=== PATIENT | male | born 1955 | race Caucasian/White ===

== ENCOUNTER 2017-11-03 20:01 | Inpatient (IN) | payer BC ==
[~2017-11-03] VITALS: Ht 180.3 cm; Wt 76.9 kg
[2017-11-03] MEDS ORDERED: ALBUTEROL/IPRATROPIUM 2.5MG/0.5MG, 3 ML NPPB ONE (20:30)
[2017-11-03] MEDS ORDERED: ALBUTEROL/IPRATROPIUM 2.5MG/0.5MG, 3 ML ONE (20:47)
[2017-11-03 21:15] LABS: ALBUMIN 3.6 g/dL (3.4-5.0); ANION GAP 5 mmol/L (5-15); CALCIUM 8.1 mg/dL (8.5-10.1); CHLORIDE 102 mmol/L (98-107); CREATININE 1.17 mg/dL (0.7-1.3)
[2017-11-03 21:19] LABS: TROPONIN I < 0.015 ng/mL (0.000-0.045)
[2017-11-03 21:36] LABS: MEAN CORPUSCULAR VOLUME 121.1 fL (81-97); RED BLOOD COUNT 1.75 x10^6/uL (4.38-5.82)
[2017-11-03 21:37] LABS: MEAN CORPUSCULAR HEMOGLOBIN 38.6 pg (27.5-34.5); MEAN CORPUSCULAR HGB CONC 31.8 g/dL (33.2-36.2); MEAN PLATELET VOLUME 8.6 fL (7.4-10.4); PLATELET COUNT 78 x10^3/uL (130-400); RED CELL DISTRIBUTION WIDTH 19.2 % (9.4-14.8)
[2017-11-03 22:14] LABS: MD YES
[2017-11-03 22:17] LABS: LYMPH#(MANUAL) 11.87 x10^3/uL (1-3.4); LYMPHS% (MANUAL) 3 % (22-44)
[2017-11-03 22:18] LABS: NRBC % (MANUAL) 2 % (0-1); OTHER CELLS # (MANUAL) 383.64 x10^3/uL (0-0); OTHER CELLS % (MANUAL) 97 % (0-0)
[2017-11-03] MEDS ORDERED: SODIUM CHLORIDE 0.9% 1,000 ML IV SCH (22:19)
[2017-11-03 22:21] LABS: ANISOCYTOSIS 2+; POLYCHROMASIA 1+
[2017-11-03 22:22] LABS: <PLATELET ESTIMATE> DECREASED; <PLT MORPHOLOGY> NORMAL PLT MORPH
[2017-11-03] MEDS ORDERED: ACETAMINOPHEN 325 MG TABLET PO PRN (22:30)
[2017-11-03] MEDS ORDERED: ALBUTEROL 0.5%, 20ML NPPB ONE (22:30)
[2017-11-03] MEDS ORDERED: INSULIN REGULAR 100 UNITS/ML, 3ML VIAL IVPush ONE (22:30)
[2017-11-03] MEDS ORDERED: hydrALAzine 20 MG/ML, 1ML IVPush PRN (22:30)
[2017-11-03] MEDS ORDERED: ONDANSETRON ODT 4 MG PO PRN (22:30)
[2017-11-03] MEDS ORDERED: DEXTROSE 50%, 50ML SYRINGE IVPush ONE (22:30)
[2017-11-03] MEDS ORDERED: SODIUM BICARB 8.4%, 50ML SYRINGE IVPush ONE (22:30)
[2017-11-03] MEDS ORDERED: SODIUM POLY SULFONATE UDC 15 GM/60 ML PO ONE (22:30)
[2017-11-03] MEDS ORDERED: TIOT18CA INH (23:08)
[2017-11-03] MEDS ORDERED: DOXY100T PO (23:08)
[2017-11-03] MEDS ORDERED: SODIUM POLYSTYRENE SULFONATE ORAL SUSP ONE (23:09)
[2017-11-03] MEDS ORDERED: INSULIN REGULAR 100 UNITS/ML, 3ML VIAL ONE (23:09)
[2017-11-03] MEDS ORDERED: SODIUM BICARB 8.4%, 50ML SYRINGE ONE (23:09)
[2017-11-03] MEDS ORDERED: DEXTROSE 50%, 50ML SYRINGE ONE (23:09)
[2017-11-03] MEDS ORDERED: NICOTINE 21 MG/24 HR PATCH.TD24 TD SCH (23:30)
[2017-11-03] MEDS ORDERED: DIPHENHYDRAMINE 25 MG CAPSULE PO PRN (23:30)
[2017-11-04] VITALS (10 sets, daily range): BP systolic 98–119; BP diastolic 59–69
[2017-11-04] MEDS ORDERED: SODIUM POLYSTYRENE SULFONATE ORAL SUSP PO ONE (03:00)
[2017-11-04] MEDS: ALBUTEROL/IPRATROPIUM 2.5MG/0.5MG, 3 ML NPPB SCH ×2 (07:05→10:20)
[2017-11-04 08:13] LABS: ALANINE AMINOTRANSFERASE 33 U/L (12-78); ALBUMIN 3.2 g/dL (3.4-5.0); ANION GAP 8 mmol/L (5-15); CALCIUM 7.3 mg/dL (8.5-10.1); CHLORIDE 102 mmol/L (98-107); CREATININE 1.11 mg/dL (0.7-1.3)
[2017-11-04 08:16] LABS: % IRON SATURATION 97 % (20-55); IRON LEVEL 230 mcg/dL (65-175); TOTAL IRON BINDING CAPACITY 238 mcg/dL (250-450)
[2017-11-04 08:23] LABS: ALKALINE PHOSPHATASE 67 U/L (45-117); BILIRUBIN,TOTAL 0.5 mg/dL (0.2-1.0)
[2017-11-04 08:35] LABS: HEMOGRAM NOTE RECHECKED; MEAN CORPUSCULAR HEMOGLOBIN 42.1 pg (27.5-34.5); MEAN CORPUSCULAR HGB CONC 34.8 g/dL (33.2-36.2); MEAN CORPUSCULAR VOLUME 120.9 fL (81-97); MEAN PLATELET VOLUME 8.6 fL (7.4-10.4); PLATELET COUNT 70 x10^3/uL (130-400); RED BLOOD COUNT 1.44 x10^6/uL (4.38-5.82); RED CELL DISTRIBUTION WIDTH 18.6 % (9.4-14.8)
[2017-11-04 08:36] LABS: MD YES
[2017-11-04 08:42] LABS: FOLATE LEVEL 15.1 ng/mL (3.1-17.5)
[2017-11-04 08:48] LABS: LYMPH#(MANUAL) 24.17 x10^3/uL (1-3.4); LYMPHS% (MANUAL) 5 % (22-44); MONOS#(MANUAL) 4.83 x10^3/uL (0.3-2.7); MONOS% (MANUAL) 1 % (2-9); SEG#(MANUAL) 4.83 x10^3/uL (1.8-6.8); SEGS% (MANUAL) 1 % (42-75)
[2017-11-04 08:57] LABS: NRBC % (MANUAL) 3 % (0-1); OTHER CELLS # (MANUAL) 449.47 x10^3/uL (0-0)
[2017-11-04 08:58] LABS: ANISOCYTOSIS 2+; OTHER CELLS % (MANUAL) 93 % (0-0); POLYCHROMASIA 1+
[2017-11-04 08:59] LABS: <PLATELET ESTIMATE> DECREASED; SMUDGE CELLS 1+
[2017-11-04 09:00] LABS: OVALOCYTES 1+
[2017-11-04] MEDS ORDERED: DIPHENHYDRAMINE 25 MG CAPSULE PO ONE (09:00)
[2017-11-04] MEDS ORDERED: ACETAMINOPHEN 325 MG TABLET PO ONE (09:00)
[2017-11-04 09:01] LABS: <PLT MORPHOLOGY> NORMAL PLT MORPH
[2017-11-04] MEDS ORDERED: NICO-487 TD (09:03)
[2017-11-04] MEDS ORDERED: HYDR20VI3 IVPush (09:03)
[2017-11-04] MEDS ORDERED: ONDA4TAB13 PO (09:03)
[2017-11-04] MEDS ORDERED: IPRA3AMP NPPB (09:03)
[2017-11-04] MEDS ORDERED: ACET325T14 PO (09:03)
[2017-11-04] MEDS ORDERED: POTASSIUM CHLORIDE 20 MEQ TAB.ER.PRT PO ONE (09:30)
== END 2017-11-04 16:12 | disposition short-term general hospital (02) | DRG 191 ==
LOC: SUATTDRO 22:19 → ED 22:26 → EDIP 22:42 → 3NW 23:30
PROVIDERS: ADMIT Hospitalist; ATTEND Hospitalist
PROC: 30233N1 Transfusion of Nonautologous Red Blood Cells into Peripheral Vein, Percutaneous Approach (ICD-10-PCS; principal; 2017-11-04)
DX: J44.1 Chronic obstructive pulmonary disease with (acute) exacerbation (principal); C92.00 Acute myeloblastic leukemia, not having achieved remission; D69.59 Other secondary thrombocytopenia; E87.1 Hypo-osmolality and hyponatremia; E44.1 Mild protein-calorie malnutrition; E87.5 Hyperkalemia; D63.0 Anemia in neoplastic disease; F17.210 Nicotine dependence, cigarettes, uncomplicated; E87.6 Hypokalemia; D50.9 Iron deficiency anemia, unspecified; Z71.6 Tobacco abuse counseling; Z68.23 Body mass index [BMI] 23.0-23.9, adult
CPT/HCPCS: 36415; 36430; 71046; 80048; 80053; 82040; 82607; 82746; 83540; 83550; 83615; 83735; 83880; 84100; 84443; 84484; 84550; 85025; 86850; 86870; 86900; 86922; 86923; 93005; 93306; 94640; 96374; J7620; J7030; P9016; Q0163